=== PATIENT | female | born 1995 | race African-American/Black ===

== ENCOUNTER → 2023-08-07 | Outpatient (CLI) | payer BC ==
[2023-08-08 18:06] LABS: Chlamydia Trachomatis, NAA Negative (Negative); Neisseria gonorrhoeae, NAA Negative (Negative)
== END | disposition home or self-care (01) ==
LOC: LAB 08:34
PROVIDERS: ATTEND Obstetrics & Gynecology
DX: Z11.3 Encounter for screening for infections with a predominantly sexual mode of transmission (principal)
CPT/HCPCS: 87086